=== PATIENT | male | born 1970 | race Caucasian/White ===

== ENCOUNTER 2018-08-11 02:53 | Inpatient (IN) | payer MEDICAID ==
[~2018-08-11] VITALS: Ht 182.9 cm; Wt 104.0 kg
[2018-08-11] MEDS ORDERED: normal saline 1000ML IV soln IVB ONE (03:25)
[2018-08-11] MEDS ORDERED: ondansetron/PF 4mg/2ml inj IV ONE (03:25)
[2018-08-11 03:34] LABS: ALANINE AMINOTRANSFERASE 50 U/L (12-78); ALBUMIN 3.9 G/DL (3.4-5.0); ALBUMIN/GLOBULIN RATIO 1.3 (1.1-1.5); ALKALINE PHOSPHATASE 60 IU/L (46-116); ANION GAP 9 (8-16); ASPARTATE AMINO TRANSFERASE 19 U/L (10-37); BILIRUBIN,TOTAL 0.3 MG/DL (0.1-1.0); BLOOD UREA NITROGEN 21 MG/DL (7-18); BUN/CREATININE RATIO 16.4 (5.4-32.0); CHLORIDE 103 MMOL/L (99-107); CREATININE 1.28 MG/DL (0.60-1.10); GLUCOSE 117 MG/DL (70-104); LIPASE 170 U/L (73-393); POTASSIUM 3.7 MMOL/L (3.5-5.1); SODIUM 140 MMOL/L (135-145); eGFR 61 ML/MIN
[2018-08-11 03:36] LABS: PROTHROMBIN TIME 10.2 SECONDS (9.0-12.0)
[2018-08-11 04:03] LABS: BASOPHILS % (AUTO) 0.1 % (0-1); EOSINOPHILS # (AUTO) 0.4 X10'3 (0-0.9); EOSINOPHILS % (AUTO) 2.5 % (0-6); HEMATOCRIT 46.2 % (42.0-52.0); HEMOGLOBIN 15.7 g/dl (14.0-17.9); LYMPHOCYTES # (AUTO) 2.3 X10'3 (1.1-4.8); MEAN CORPUSCULAR HEMOGLOBIN 30.7 PG (27.0-31.0); MEAN CORPUSCULAR HGB CONC 34.1 g/dL (33.0-36.5); MEAN CORPUSCULAR VOLUME 89.9 FL (78-98); MEAN PLATELET VOLUME 7.1 FL (7.4-10.4); MONOCYTES # (AUTO) 0.6 X10'3 (0-0.9); MONOCYTES % (AUTO) 3.6 % (2-12); NEUTROPHILS # (AUTO) 13.2 X10'3 (1.8-7.7); NEUTROPHILS % (AUTO) 79.8 % (42-75); PLATELET COUNT 302 X10'3 (140-440); RED BLOOD COUNT 5.13 X10'6 (4.70-6.10); RED CELL DISTRIBUTION WIDTH 12.9 % (11.5-14.5); WHITE BLOOD COUNT 16.5 X10'3 (4.5-11.0)
[2018-08-11 05:09] LABS: CLARITY,URINE CLEAR (Clear); COLOR,URINE STRAW (Yellow); GLUCOSE, URINE NEGATIVE (Neg); KETONES,URINE NEGATIVE (Neg); LEUKOCYTE ESTERASE ,URINE NEGATIVE (Neg); NITRITES, URINE NEGATIVE (Neg); OCCULT BLOOD,URINE SMALL (Neg); PROTEIN,URINE NEGATIVE (Neg); UROBILINOGEN,URINE 0.2 E.U/dL (0.2-1.0)
[2018-08-11 05:14] LABS: UA COLLECTION TYPE CLN CATCH MIDSTREAM
[2018-08-11 05:16] LABS: BACTERIA,URINE NONE SEEN /HPF (Neg); MUCUS STRANDS MODERATE /LPF (Neg); RBC,URINE 0-2 /HPF (0-2); SQUAMOUS EPITHELIAL CELL,UR NONE SEEN /LPF (FEW); WBC,URINE NONE SEEN /HPF (0-4)
[2018-08-11] MEDS ORDERED: piperacillin/tazo 4.5gm/100ml 100 ML IV SCH (06:30)
--- NOTE | 2018-08-11 06:40 | NUR ---
PATIENT RECEIVED OIN BED AWAKE,MOVING TOWARDS ADMITTING PATEINT PER ED MD ORDER.DIFFUSED ABDOMINAL PAIN 07/13.NO NAUSEA/VOMITING AT THIS TIME.MWD REC COMPLETED.
[2018-08-11] MEDS ORDERED: ALPR-624 PO ×2 (06:46→13:16)
[2018-08-11] MEDS ORDERED: TRAZ-218 PO (06:46)
[2018-08-11] MEDS ORDERED: OMEP40CA37 PO (06:46)
[2018-08-11] MEDS ORDERED: acetaminophen 325mg tablet PO ONE ×2 (07:00→14:40)
[2018-08-11] MEDS: normal saline 1000ml 1,000 ML IV SCH ×2 (07:07→17:07)
[2018-08-11] MEDS ORDERED: potassium Cl 40MEQ/NS 500ml 500 ML IV PRN ×2 (07:10)
[2018-08-11] MEDS ORDERED: morphine 4 MG/ML inj SYRINge IV PRN (07:10)
[2018-08-11] MEDS ORDERED: magnesium 4gm in 100ml NS 100 ML IV PRN (07:10)
[2018-08-11] MEDS ORDERED: acetaminophen 650mg rectal suppository RC PRN (07:10)
[2018-08-11] MEDS ORDERED: potassium Cl 20 mEq SR tablet PO PRN ×2 (07:10)
[2018-08-11] MEDS ORDERED: magnesium 2GM in 50ml NS 50 ML IV PRN (07:10)
[2018-08-11] MEDS ORDERED: magnesium Cl slow-release 64mg tablet PO PRN (07:10)
[2018-08-11] MEDS ORDERED: ondansetron/PF 4mg/2ml inj IV PRN (07:10)
[2018-08-11] MEDS ORDERED: piperacillin/tazo 3.375gm/50ml 50 ML IV SCH (08:00)
[2018-08-11] MEDS: K and/or MAG REPLACEMENT MC SCH (08:00)
--- NOTE | 2018-08-11 08:04 | NUR ---
STILL AWAITING FOR NEW ROOM ASSIGNMENT.
--- NOTE | 2018-08-11 11:22 | NUR ---
CALLED [phone] TO GIVE JEROME JIMÉNEZ
--- NOTE | 2018-08-11 11:27 | NUR ---
REPORT TO JEROME JIMÉNEZ OR : EXP LAP BY DR PAULINO BARNARD AT 1900
[2018-08-11] MEDS ORDERED: normal saline 1000ml 1,000 ML IV ONE (11:35)
[2018-08-11] MEDS: piperacillin/tazo 3.375gm/50ml 50 ML IV SCH ×2 (11:44→19:58)
--- NOTE | 2018-08-11 13:37 | NUR ---
SPOKE TO DR BOB RE DIET FOR PATIENT
--- NOTE | 2018-08-11 14:30 | NUR ---
PHONE REPORT TO LEN JIMÉNEZMEDICAL CARE EVALUATION SPECIALIST PATIENT TO GO TO ROOM 716P
[2018-08-11 15:00] VITALS: BP 133/85
--- NOTE | 2018-08-11 15:28 | NUR ---
RECD REPORT FROM JOEY IN ER. PT ARRIVED TO UNIT ALERT & ORIENTED. CALL LIGHT WITHIN REACH, VSS
[2018-08-11] MEDS ORDERED: famotidine/PF 10 mg/ml inj IV SCH (18:00)
--- NOTE | 2018-08-11 18:12 | NUR ---
Problems reprioritized. Patient report given, questions answered & plan of care reviewed with PRITESH JIMÉNEZ.
--- NOTE | 2018-08-11 18:30 | NUR ---
Patient in room [facility]. I have received report from Gia JIMÉNEZ and had the opportunity to ask questions and assume patient care.
[2018-08-11 19:00] VITALS: BP 130/76
[2018-08-11] MEDS: lactobacillus rhamnosus 10,000 MMU CELLS/CAPSULE PO SCH (19:59)
[2018-08-11] MEDS: diatr meglu/diatrizoate 30ml oral sol.-(3 dose) bottle PO SCH (21:37)
[2018-08-12] VITALS: BP 101/54
[2018-08-12] MEDS: normal saline 1000ml 1,000 ML IV SCH ×2 (00:33→13:07)
[2018-08-12] MEDS: piperacillin/tazo 3.375gm/50ml 50 ML IV SCH ×2 (03:27→11:43)
--- NOTE | 2018-08-12 06:30 | NUR ---
Problems reprioritized. Patient report given, questions answered & plan of care reviewed with nathalia JIMÉNEZ.
[2018-08-12 07:00] VITALS: BP 116/67
--- NOTE | 2018-08-12 07:01 | NUR ---
Patient in room [facility]. I have received report from PRITESH JIMÉNEZ and had the opportunity to ask questions and assume patient care.
[2018-08-12] MEDS: lactobacillus rhamnosus 10,000 MMU CELLS/CAPSULE PO SCH (07:05)
[2018-08-12 07:09] LABS: BASOPHILS % (AUTO) 0.5 % (0-1); EOSINOPHILS # (AUTO) 0.1 X10'3 (0-0.9); EOSINOPHILS % (AUTO) 2.2 % (0-6); HEMATOCRIT 42.8 % (42.0-52.0); HEMOGLOBIN 14.8 g/dl (14.0-17.9); LYMPHOCYTES # (AUTO) 2.2 X10'3 (1.1-4.8); LYMPHOCYTES % (AUTO) 33.6 % (21-51); MEAN CORPUSCULAR HEMOGLOBIN 31.2 PG (27.0-31.0); MEAN CORPUSCULAR HGB CONC 34.5 g/dL (33.0-36.5); MEAN CORPUSCULAR VOLUME 90.4 FL (78-98); MONOCYTES # (AUTO) 0.6 X10'3 (0-0.9); MONOCYTES % (AUTO) 8.3 % (2-12); NEUTROPHILS # (AUTO) 3.7 X10'3 (1.8-7.7); NEUTROPHILS % (AUTO) 55.4 % (42-75); PLATELET COUNT 242 X10'3 (140-440); RED BLOOD COUNT 4.74 X10'6 (4.70-6.10); RED CELL DISTRIBUTION WIDTH 12.7 % (11.5-14.5); WHITE BLOOD COUNT 6.7 X10'3 (4.5-11.0)
[2018-08-12 07:12] LABS: ALBUMIN 3.2 G/DL (3.4-5.0); ANION GAP 8 (8-16); BLOOD UREA NITROGEN 9 MG/DL (7-18); BUN/CREATININE RATIO 8.1 (5.4-32.0); CHLORIDE 107 MMOL/L (99-107); CREATININE 1.11 MG/DL (0.60-1.10); GLUCOSE 99 MG/DL (70-104); MAGNESIUM 1.8 MG/DL (1.5-2.4); POTASSIUM 3.7 MMOL/L (3.5-5.1); SODIUM 141 MMOL/L (135-145); TOTAL CARBON DIOXIDE 25.9 MMOL/L (24-32); eGFR 71 ML/MIN
[2018-08-12] MEDS: diatr meglu/diatrizoate 30ml oral sol.-(3 dose) bottle PO SCH ×2 (07:17→09:17)
[2018-08-12] MEDS: K and/or MAG REPLACEMENT MC SCH (08:00)
[2018-08-12] MEDS ORDERED: iohexol 300mg/ml 100ml inj. ONE (09:42)
[2018-08-12 12:26] VITALS: BP 109/59
[2018-08-12] MEDS ORDERED: AMOX-422 PO (15:15)
--- NOTE | 2018-08-12 16:13 | NUR ---
PT DISCHARGED IN STABLE CONDITION. LEFT FACILITY IN PRIVATE VEHICLE. IV DC CANULA INTACT. ALL BELONGINGS IN HAND. FOLLOW UP INSTRUCTIONS GIVEN, ALL QUESTIONS ANSWERED. DISCUSSED WITH PT THAT DR BOB WANTS PT TO HAVE OUTPT COLONOSCOPY AFTER ABX TREATMENT COMPLETE., PER CHARGE NURSE. PT STATES THAT HE WILL DISCUSS WITH PRIMARY MD AT NEXT VISIT ON TUESDAY. Addendum: 08/12/18 at 1615 by Keyona Valderrama RN Amended: Links added.
== END 2018-08-12 16:10 | disposition home or self-care (01) | DRG 254 ==
LOC: ER 02:54 → ED HOLD 07:07 → SUR 3N 15:02
PROVIDERS: ADMIT Internal Medicine; ATTEND Internal Medicine
DX: K35.80 Unspecified acute appendicitis (principal); K51.90 Ulcerative colitis, unspecified, without complications; G89.29 Other chronic pain; M54.9 Dorsalgia, unspecified; Z90.49 Acquired absence of other specified parts of digestive tract; Z79.899 Other long term (current) drug therapy
CPT/HCPCS: 36415; 74176; 74177; 80048; 80053; 81001; 83605; 83690; 83735; 85025; 85610; 87040; 87070; 96361; 96365; 96375; 99285; G0378; J2405; J2543; J3490; J7030; Q9963; Q9967

== ENCOUNTER 2019-12-11 21:39 | Inpatient (IN) | payer MEDICAID ==
[~2019-12-11] VITALS: Ht 188 cm; Wt 101.8 kg
[~2019-12-11 21:39] MED LIST: OMEP40CA13 PO; TRAZ-251 PO
[2019-12-11 22:23] LABS: BASOPHILS # (AUTO) 0.1 X10'3 (0-0.2); BASOPHILS % (AUTO) 0.3 % (0-1); EOSINOPHILS % (AUTO) 0.2 % (0-6); HEMATOCRIT 49.1 % (42.0-52.0); HEMOGLOBIN 16.7 g/dl (14.0-17.9); LYMPHOCYTES # (AUTO) 2.2 X10'3 (1.1-4.8); LYMPHOCYTES % (AUTO) 10.2 % (21-51); MEAN CORPUSCULAR HEMOGLOBIN 30.5 PG (27.0-31.0); MEAN CORPUSCULAR HGB CONC 34.1 g/dL (33.0-36.5); MEAN CORPUSCULAR VOLUME 89.5 FL (78-98); MEAN PLATELET VOLUME 6.9 FL (7.4-10.4); MONOCYTES # (AUTO) 1.8 X10'3 (0-0.9); MONOCYTES % (AUTO) 8.1 % (2-12); NEUTROPHILS # (AUTO) 17.5 X10'3 (1.8-7.7); NEUTROPHILS % (AUTO) 81.2 % (42-75); PLATELET COUNT 313 X10'3 (140-440); RED BLOOD COUNT 5.48 X10'6 (4.70-6.10); RED CELL DISTRIBUTION WIDTH 13.5 % (11.5-14.5); WHITE BLOOD COUNT 21.6 X10'3 (4.5-11.0)
[2019-12-11 22:29] LABS: ALANINE AMINOTRANSFERASE 65 U/L (12-78); ALBUMIN 4.5 G/DL (3.4-5.0); ALBUMIN/GLOBULIN RATIO 1.3 (1.1-1.5); ALKALINE PHOSPHATASE 61 IU/L (46-116); ANION GAP 15 (8-16); ASPARTATE AMINO TRANSFERASE 42 U/L (10-37); BILIRUBIN,TOTAL 0.9 MG/DL (0.1-1.0); BLOOD UREA NITROGEN 23 MG/DL (7-18); BUN/CREATININE RATIO 12.9 (5.4-32.0); CHLORIDE 101 MMOL/L (99-107); CREATININE 1.78 MG/DL (0.60-1.10); GLUCOSE 112 MG/DL (70-104); LIPASE 89 U/L (73-393); POTASSIUM 3.4 MMOL/L (3.5-5.1); SODIUM 138 MMOL/L (135-145); TOTAL CARBON DIOXIDE 21.9 MMOL/L (24-32); TOTAL PROTEIN 7.9 G/DL (6.4-8.2); eGFR 41 ML/MIN
[2019-12-11] MEDS ORDERED: ketorolac tromethamine 15mg/ml inj. IV ONE (22:45)
[2019-12-11] MEDS ORDERED: ondansetron/PF 4mg/2ml inj IV ONE (22:45)
[2019-12-11] MEDS ORDERED: normal saline 1000ML IV soln IVB ONE (22:45)
[2019-12-11] MEDS ORDERED: NO HOME MEDS (23:42)
[2019-12-12] VITALS (7 sets, daily range): BP systolic 121–132; BP diastolic 64–88
[2019-12-12] MEDS ORDERED: piperacillin/tazo 3.375gm/50ml 50 ML IV ONE (00:25)
[2019-12-12] MEDS ORDERED: morphine 2 MG/ML inj. syringe IV PRN ×3 (01:10→13:00)
[2019-12-12] MEDS ORDERED: ondansetron/PF 4mg/2ml inj IV PRN ×2 (01:10→13:00)
[2019-12-12] MEDS: diatr meglu/diatrizoate 30ml oral sol.-(3 dose) bottle PO SCH ×3 (01:17→10:32)
[2019-12-12] MEDS: normal saline 1000ml 1,000 ML IV SCH ×3 (02:00→21:10)
--- NOTE | 2019-12-12 02:58 | NUR ---
patient in bed covers on lying on left side eyes closed rr even un labored no observable s/s of acute stress/pain observable at this time will continue to monitor
--- NOTE | 2019-12-12 04:48 | NUR ---
patient given new warm blankets rr even un labored denies the need for pain medication when asked patient states " i feel ok and getting some sleep tonight."
--- NOTE | 2019-12-12 05:49 | NUR ---
patient stated " I am ok." when asked if pain was not tolerable patient is currently lying in bed on left side covers on eyes closed rr even un labored no observable s/s of acute stress or pain observable will continue to monitor
--- NOTE | 2019-12-12 07:00 | NUR ---
pt states pain is at a 3 no intervention needed
--- NOTE | 2019-12-12 07:10 | NUR ---
called to give report, was told that [facility] will be taking the pt, but the room is not clean, they will call when ready. Updated SHARONA Johnson
[2019-12-12 07:18] LABS: CLARITY,URINE SLIGHTLY CLOUDY (Clear); COLOR,URINE YELLOW (Yellow); GLUCOSE, URINE NEGATIVE (Neg); KETONES,URINE NEGATIVE (Neg); LEUKOCYTE ESTERASE ,URINE NEGATIVE (Neg); NITRITES, URINE NEGATIVE (Neg); OCCULT BLOOD,URINE TRACE-INTACT (Neg); PH,URINE 5.5 (4.8-8.0); PROTEIN,URINE TRACE mg/dl (Neg); UROBILINOGEN,URINE 0.2 E.U/dL (0.2-1.0)
[2019-12-12 07:32] LABS: UA COLLECTION TYPE URINAL
[2019-12-12 07:33] LABS: WBC,URINE 0-4 /HPF (0-4)
[2019-12-12 07:34] LABS: BACTERIA,URINE NONE SEEN /HPF (Neg); MUCUS STRANDS NONE SEEN /LPF (Neg); SQUAMOUS EPITHELIAL CELL,UR FEW /LPF (FEW)
[2019-12-12 07:36] LABS: TYROSINE CRYSTAL,URINE 1+ /HPF (NEGATIVE)
--- NOTE | 2019-12-12 07:37 | NUR ---
called again to give report, was told that the nurseMelinda is in a room and would call me back, and that the room is still not clean
[2019-12-12] MEDS: piperacillin/tazo 3.375gm/50ml 50 ML IV SCH ×2 (09:12→16:05)
[2019-12-12] MEDS ORDERED: iohexol 300mg/ml 100ml inj. ONE (10:48)
[2019-12-12] MEDS ORDERED: BUPIVAcaine/PF 2.5 mg/ml (0.25%) 30ml vial ONE (12:44)
[2019-12-12] MEDS ORDERED: ceFAZolin 1000mg inj ONE (12:44)
[2019-12-12 12:51] LABS: PARTIAL THROMBOPLASTIN TIME 28 SECONDS (22-32)
[2019-12-12] MEDS ORDERED: ringers solution, lacted 1,000 ML IV SCH (12:57)
[2019-12-12] MEDS ORDERED: morphine 4 MG/ML inj SYRINge IV PRN (13:00)
[2019-12-12] MEDS ORDERED: labetalol 20mg/4ml (5mg/ml) syringe IV PRN (13:00)
[2019-12-12] MEDS ORDERED: hydrALAZINE 20mg/ml inj. IV PRN (13:00)
[2019-12-12] MEDS ORDERED: fentaNYL/PF 50MCG/1 ML 2ML syringe IV PRN ×2 (13:00)
[2019-12-12] MEDS ORDERED: sevoflurane 250ml liquid IH ONE (13:02)
[2019-12-12] MEDS ORDERED: neostigmine methylsulfate 1 MG/ML 10ml vial ONE (13:02)
[2019-12-12] MEDS ORDERED: LIDOcaine 2% (20mg/ml) 5ml vial ONE (13:03)
[2019-12-12] MEDS ORDERED: propofol inj 20 ML IV ONE (13:03)
[2019-12-12] MEDS ORDERED: fentaNYL/PF 50MCG/1 ML 2ML syringe ONE (13:03)
[2019-12-12] MEDS ORDERED: rocuronium 10mg/ml inj IV ONE (13:04)
[2019-12-12] MEDS ORDERED: dexamethasone sod phosphate 4mg/ml inj. ONE (13:10)
[2019-12-12] MEDS ORDERED: glycopyrrolate 0.2mg/ml inj ONE (13:11)
[2019-12-12] MEDS ORDERED: ondansetron/PF 4mg/2ml inj ONE (13:11)
[2019-12-12] MEDS ORDERED: ceFOXitin 1000 MG inj ONE ×2 (13:19)
[2019-12-12] MEDS ORDERED: ceFOXitin 2GM-NS 50mL ADDVANT. 50 ML IV ONE (13:21)
--- NOTE | 2019-12-12 13:59 | NUR ---
Received from OR via SURGICAL BED , accompanied by Anesthesiologist KRYSTYNA and report given by Anesthesiolgist. 3 ANTERIOR BANDAIDS TO ABDOMEN THAT ARE CDI. VSS. DENIES PAIN, SCDS DONNED. 10L MASK ON WITH 98% SATURATIONS Addendum: 12/12/19 at 1410 by Will Holm RN, RN Amended: Links added.
--- NOTE | 2019-12-12 14:39 | NUR ---
ALL CRITERIA FOR DC TO THE FLOOR HAS BEEN ACHIEVED. 2 RAILS UP. BED LOW, CALL LIGHT PRESENT. GAVE REPORT TO TINO BRAVO . PAIN AT A TOLERABLE LEVEL AT THIS TIME. DRESSINGS CDI. CARE TURNED OVER TO RN. Addendum: 12/12/19 at 1441 by Will Eason - TINO RN Amended: Links added.
--- NOTE | 2019-12-12 14:45 | NUR ---
1445 report given to this RN by Will JIMÉNEZ, received patient into 347b, . Patient pbserbed to have three bandaide sites CDI, O2/3l o2 sats 96%. No c/o pain, Post op VS commenced will continue to monitor.
[2019-12-12] MEDS ORDERED: magnesium 4gm in 100ml NS 100 ML IV PRN (15:50)
[2019-12-12] MEDS ORDERED: magnesium Cl slow-release 64mg tablet PO PRN (15:50)
[2019-12-12] MEDS ORDERED: potassium CL 10mEq/100ml bag 100 ML IV PRN (15:50)
[2019-12-12] MEDS ORDERED: potassium Cl 20 mEq SR tablet PO PRN ×2 (15:50)
[2019-12-12] MEDS ORDERED: HYDROmorphone 1 mg/ml syringe IV PRN (17:35)
[2019-12-12] MEDS ORDERED: proCHLORperazine 10 MG/2 ml inj IV PRN (17:35)
--- NOTE | 2019-12-12 18:29 | NUR ---
patient c/o extreme pain 10/10 and nausea, dr ritchie contacted new orders given for Dilaudid and Compazine, see Emar. Patient stated he only wanted compazine to start. Administered with immediate relief. Resting after this .Problems reprioritized. Patient report given, questions answered & plan of care reviewed with Roshni..
[2019-12-12] MEDS: lactobacillus rhamnosus 10,000 MMU CELLS/CAPSULE PO SCH (21:06)
[2019-12-13] VITALS: BP 95/52
[2019-12-13] MEDS: piperacillin/tazo 3.375gm/50ml 50 ML IV SCH ×2 (00:29→09:11)
[2019-12-13] MEDS: normal saline 1000ml 1,000 ML IV SCH (01:37)
[2019-12-13 04:00] VITALS: BP 117/75
[2019-12-13 05:15] LABS: ALANINE AMINOTRANSFERASE 50 U/L (12-78); ALBUMIN 3.6 G/DL (3.4-5.0); ALBUMIN/GLOBULIN RATIO 1.1 (1.1-1.5); ALKALINE PHOSPHATASE 56 IU/L (46-116); ANION GAP 9 (8-16); ASPARTATE AMINO TRANSFERASE 25 U/L (10-37); BASOPHILS % (AUTO) 0.1 % (0-1); BILIRUBIN,TOTAL 0.6 MG/DL (0.1-1.0); BLOOD UREA NITROGEN 10 MG/DL (7-18); BUN/CREATININE RATIO 6.1 (5.4-32.0); CALCIUM 8.6 MG/DL (8.5-10.1); CHLORIDE 107 MMOL/L (99-107); CREATININE 1.63 MG/DL (0.60-1.10); EOSINOPHILS % (AUTO) 0 % (0-6); GLUCOSE 126 MG/DL (70-104); HEMATOCRIT 44.5 % (42.0-52.0); LYMPHOCYTES # (AUTO) 1.9 X10'3 (1.1-4.8); LYMPHOCYTES % (AUTO) 16.6 % (21-51); MEAN CORPUSCULAR HEMOGLOBIN 30.2 PG (27.0-31.0); MEAN CORPUSCULAR HGB CONC 33.6 g/dL (33.0-36.5); MEAN CORPUSCULAR VOLUME 89.9 FL (78-98); MEAN PLATELET VOLUME 7.1 FL (7.4-10.4); MONOCYTES # (AUTO) 0.9 X10'3 (0-0.9); NEUTROPHILS # (AUTO) 8.5 X10'3 (1.8-7.7); NEUTROPHILS % (AUTO) 75.3 % (42-75); PLATELET COUNT 309 X10'3 (140-440); RED BLOOD COUNT 4.95 X10'6 (4.70-6.10); RED CELL DISTRIBUTION WIDTH 13.2 % (11.5-14.5); SODIUM 142 MMOL/L (135-145); TOTAL CARBON DIOXIDE 25.7 MMOL/L (24-32); TOTAL PROTEIN 6.8 G/DL (6.4-8.2); WHITE BLOOD COUNT 11.3 X10'3 (4.5-11.0); eGFR 45 ML/MIN
[2019-12-13 08:00] VITALS: BP 106/52
[2019-12-13] MEDS: lactobacillus rhamnosus 10,000 MMU CELLS/CAPSULE PO SCH (09:10)
--- NOTE | 2019-12-13 11:29 | NUR ---
Dr Salazar rounded and discussed w/ pt ok to discharge home today from a surgical standpoint, and pt is aware hospitalist will enter discharge orders.
[2019-12-13 12:00] VITALS: BP 105/71
[2019-12-13] MEDS ORDERED: AMOX500C2 PO (12:24)
--- NOTE | 2019-12-13 12:55 | NUR ---
Educated patient on discharge instructions and discharge antibiotics of 1 capsule three times a day per Dr. Salazar and patient states he understands with no further questions. Patient states he will follow up with Dr. Salazar in one week and make the appointment when he gets home, and follow up with "Bob" his primary care physician in 2 weeks, per MD suggestion. Patient transported down to his 's care via wheelchair and nursing staff safely, all belongings sent with him.
== END 2019-12-13 13:14 | disposition home or self-care (01) | DRG 234 ==
LOC: ER 21:40 → ED HOLD 12-12 01:53 → SUR 3N 12-12 08:10
PROVIDERS: ADMIT Internal Medicine; ATTEND Family Medicine
PROC: 0DTJ4ZZ Resection of Appendix, Percutaneous Endoscopic Approach (ICD-10-PCS; principal; 2019-12-13)
DX: K35.80 Unspecified acute appendicitis (principal); N17.9 Acute kidney failure, unspecified; K51.90 Ulcerative colitis, unspecified, without complications; G89.29 Other chronic pain; E87.6 Hypokalemia; K52.9 Noninfective gastroenteritis and colitis, unspecified; M54.9 Dorsalgia, unspecified; Z90.49 Acquired absence of other specified parts of digestive tract
CPT/HCPCS: 36415; 74176; 74177; 80053; 81001; 82948; 83690; 85025; 85610; 85730; 87081; 96374; 99285; A4215; A4618; A7000; G0378; J0690; J0694; J0780; J1100; J1170; J1885; J2001; J2270; J2405; J2543; J2704; J2710; J3010; J3490; J7030; J7120; Q9963; Q9967